=== PATIENT | female | born 1990 | race Caucasian/White ===

== ENCOUNTER 2020-06-04 00:32 | Outpatient (CLI) | payer BC, SELFPAY ==
[2020-06-04 18:26] LABS: SARS-CoV-2 RNA PCR Negative
== END 2020-06-04 00:33 | disposition home or self-care (01) ==
LOC: ANHCOVIDDT 00:32
PROVIDERS: Family Provider Pediatrics; PCP Internal Medicine; Visit Provider Internal Medicine Gastroenterology
DX: Z01.812 Encounter for preprocedural laboratory examination (principal); Z20.822 Contact with and (suspected) exposure to COVID-19
CPT/HCPCS: C9803; U0003; U0005

== ENCOUNTER 2020-06-07 00:34 | Day surgery (SDC) | payer BC, SELFPAY ==
[2020-05-24 13:48] VITALS: BMI 25.2
[2020-06-07 11:35] VITALS: BP 133/75; PULSE 83; RESP 16; TEMP 36.4; O2SAT 97; BMI 26.7
[2020-06-07] MEDS: LACTATED RINGERS 1,000 ML 150 ML IV CONT (11:46)
--- NOTE | 2020-06-07 12:02 | WPDANESEPPF ---
Anes - Initial Pre Proc Eval Procedure: Operation Date: 06/07/20 11:30 Proposed Procedures p Colonoscopy - Marco Jaquez DO Date/Time: 06/07/20 12:02 Surgeon: Marco Jaquez DO Pre Op Diagnosis: Constipation Patient Data Age: 29 Gender: F Height: 5 ft 7 in Weight: 77.4 kg Last Vital Signs Temp 97.5 F L 06/07/20 11:35 Pulse 83 06/07/20 11:35 Resp 16 06/07/20 11:35 BP 133/75 06/07/20 11:35 Pulse Ox 97 06/07/20 11:35 Allergies Allergy/AdvReac Type Severity Reaction Status Date / Time No Known Allergies Allergy Mild Verified 06/07/20 11:34 Home Medications Medication Instructions Recorded Confirmed Type norgestimate-ethinyl estradiol 1 tablet PO DAILY 05/24/20 06/07/20 History [Tri-Sprintec (28)] Patient hx anesthesia problems: none Family hx anesthesia problems: none [facility] Past Medical History Medical History (Updated 06/07/20 @ 11:58 by Aly Dickson MD) GERD (gastroesophageal reflux disease) Social History Social History Smoking status: Never smoker Alcohol intake: current Substance use: never Substance use type: does not use Living arrangements: with family Spiritual care concerns: No Anes - Eval Final PreProcedure Day of Procedure 06/07/20 12:02 Patient weight: overweight Heart: regular rate and rhythm Lungs: clear to auscultation Airway: Mallampati scale class II Neurological: alert and oriented Last oral intake: >/= 8 hours ASA classification: II Emergent: no Anesthetic plan: proceed Anesthesia type and monitoring: general GIVS and standard monitoring Informed Consent: The patient's anesthetic plan and its attendant risks and benefits were discussed with the patient/family/POA. Questions were solicited and answers provided to the satisfaction of the patient/family/POA.
--- NOTE | 2020-06-07 12:29 | WPDGICN ---
GI Consult Note Consult date/time: 06/07/20 12:29 HPI: Reason for visit colonoscopy. This very pleasant lady's in consultation at the request of the primary physician. Impression: Here very pleasant lady with chronic Idiopathic constipation. This most likely due to chronic idiopathic constipation. She had rectal bleeding which may be Perianal in origin. Underlying inflammatory or neoplastic disease needs to be excluded. recommendation: Colonoscopy. History: This very pleasant lady has a history of chronic constipation. Constipation going on for the last year. She may go up to the 3 weeks without a bowel movement. Now she is going approximately 3 days or so. She has significant straining with defecation. She Reports having bright red blood per rectum at times of straining. She is here for colonoscopy to assess for inflammatory neoplastic disease. She has been Taking Ex-Lax in order to have bowel movements. Physical examination: General: very pleasant patient in no acute distress. HEENT: Head was normocephalic sclerae is clear mouth without masses neck was supple. Heart: Rate rhythm regular without S3 or S4. Lungs: CTA. Abdomen: Soft with no guarding or rigidity. Bowel sounds were active. Neurologic: Cranial nerves 2 through 12 intact. No focal defects. No clonus. Musculoskeletal system: Revealed no joint tenderness or swelling no muscle atrophy. Extremities: Reveal no significant edema. Skin: Warm and dry with normal turgor. Mental status: intact. Patient is alert and oriented. Review of Systems Review of Systems: All systems reviewed & are unremarkable except as noted in HPI and below PMFSH Past Medical History Medical History (Updated 06/07/20 @ 11:58 by Aly Dickson MD) GERD (gastroesophageal reflux disease) Social History Social History Smoking status: Never smoker Alcohol intake: current Substance use: never Substance use type: does not use Living arrangements: with family Spiritual care concerns: No Meds Home Medications and Allergies Home Medications Medication Instructions Recorded Confirmed Type norgestimate-ethinyl estradiol 1 tablet PO DAILY 05/24/20 06/07/20 History [Tri-Sprintec (28)] Allergies Allergy/AdvReac Type Severity Reaction Status Date / Time No Known Allergies Allergy Mild Verified 06/07/20 11:34 Vital Signs Vital Signs - 24 hr 06/07/20 11:35 Temperature 36.4 C L Pulse Rate 83 Respiratory Rate 16 Blood Pressure 133/75 Pulse Oximetry 97
[2020-06-07 13:30] VITALS: BP 90/56; PULSE 82; RESP 14; O2SAT 97
[2020-06-07 13:40] VITALS: BP 95/61; PULSE 78; RESP 20; O2SAT 98
[2020-06-07 13:50] VITALS: BP 114/69; PULSE 70; RESP 22; O2SAT 100
== END 2020-06-07 14:04 | disposition home or self-care (01) ==
PROVIDERS: Family Provider Pediatrics; PCP Internal Medicine; Visit Provider Internal Medicine Gastroenterology
PROC: 0DJD8ZZ Inspection of Lower Intestinal Tract, Via Natural or Artificial Opening Endoscopic (ICD-10-PCS; CPT 45378; principal; 2020-06-07 11:30)
DX: K59.09 Other constipation (principal); K62.5 Hemorrhage of anus and rectum
CPT/HCPCS: 45378; J2704; J7120